=== PATIENT | male | born 1960 | race Two or more races ===

== ENCOUNTER 2020-02-19 18:34 | Inpatient (IN) | payer BC, OTHER ==
[~2020-02-19] VITALS: Ht 172.7 cm; Wt 132.0 kg
[2020-02-19 20:41] LABS: Basophils # (auto) 0 10 ^3/uL (0-0.2); Basophils % (auto) 0.1 % (0.0-2.0); Eosinophils # (auto) 0.2 10 ^3/uL (0-0.8); Eosinophils % (auto) 1.9 % (0.0-7.0); Hematocrit 37.4 % (41.0-53.0); Hemoglobin 12.5 g/dL (13.5-17.5); Lymphocytes # (auto) 0.6 10 ^3/uL (0.4-5.4); Lymphocytes % (auto) 6.5 % (10.0-50.0); Mean Corpuscular Hemoglobin 30.5 pg (28.0-32.0); Mean Corpuscular Hgb Conc. 33.5 g/dL (32.0-36.0); Mean Corpuscular Volume 90.8 fL (80.0-100.0); Monocytes # (auto) 0.5 10 ^3/uL (0-1.3); Monocytes % (auto) 5.8 % (0.0-12.0); Neutrophils # (auto) 7.5 10 ^3/uL (1.6-8.6); Neutrophils % (auto) 85.7 % (37.0-80.0); Platelet Count (auto) 216 10^3/uL (140-450); Red Blood Cells 4.11 10^6/uL (4.5-5.90); Red Cell Distribution Width 14.9 % (11.8-14.3); White Blood Cell 8.8 10^3/uL (4.4-10.8)
[2020-02-19 20:52] LABS: Albumin 2.9 g/dL (3.4-5.0); Anion Gap 10 (5-15); Blood Urea Nitrogen 51 mg/dL (7-18); Calcium 8.5 mg/dL (8.5-10.1); Carbon Dioxide 26 mmol/L (21-32); Chloride 96 mmol/L (98-107); GFR African American 37 mL/min; GFR Non-African American 31 mL/min; Glucose 120 mg/dL (74-106); Magnesium 2.9 mg/dL (1.6-2.6); Potassium 3.2 mmol/L (3.5-5.1); Sodium 132 mmol/L (136-145)
[2020-02-19 20:54] LABS: INR 0.99 (0.9-1.15); Partial Thromboplastin Time 26.4 sec (23.0-31.2)
[2020-02-19 20:57] LABS: Alanine Aminotransferase 15 U/L (16-61); Alkaline Phosphatase 115 U/L (45-117); Aspartate Aminotransferase 42 U/L (15-37); Bilirubin, Total 0.8 mg/dL (0.2-1.0); Total Protein 8.3 g/dL (6.4-8.2)
[2020-02-20] MEDS ORDERED: HYDROcodone-ACET 5/325MG TAB PO ONE (00:45)
[2020-02-20 00:57] LABS: Urine Bacteria FEW /hpf (None Seen); Urine Blood TRACE /uL (Negative); Urine Hyaline Cast MANY /lpf (0 - 2); Urine Specific Gravity 1.026 (1.001-1.035); Urine WBC 2 /hpf (0 - 3)
[2020-02-20] MEDS ORDERED: levoFLOXacin 750MG 150 ML IV ONE (02:00)
[2020-02-20] MEDS ORDERED: HYDR12.55 PO (02:11)
[2020-02-20] MEDS ORDERED: NALO1TAB2 PO (02:11)
[2020-02-20] MEDS ORDERED: OXYC325T14 PO (02:11)
[2020-02-20] MEDS ORDERED: LOSA-69 PO (02:11)
[2020-02-20] MEDS ORDERED: DULO1CAP4 PO (02:11)
[2020-02-20] MEDS ORDERED: GABA300C10 PO (02:11)
[2020-02-20] MEDS ORDERED: MORPHINE SULF INJ 2 MG/ML SYRINGE 1ML IV PRN (04:00)
[2020-02-20] MEDS ORDERED: ONDANSETRON HCL 4 MG/2 ML VIAL IV PRN (04:00)
[2020-02-20] MEDS ORDERED: NITROGLYCERIN 0.4 MG SL TAB SL PRN (04:00)
[2020-02-20] MEDS ORDERED: POTASSIUM CHL 20 Meq TABLET PO ONE (04:00)
[2020-02-20] MEDS ORDERED: ALBUTEROL SULF HFA 90MCG INH 200DOSE IN PRN (04:00)
[2020-02-20] MEDS: SODIUM CHLORIDE 0.9% 1,000 ML IV SCH ×2 (05:21→20:40)
[2020-02-20] MEDS: MORPHINE SULFATE 4 MG/ML SYR/VIAL IV PRN ×2 (06:30→23:53)
[2020-02-20] MEDS: BUDESONIDE (INHALATION) 180 MCG IH IN SCH ×2 (07:12→19:15)
[2020-02-20 09:45] LABS: Basophils # (auto) 0 10 ^3/uL (0-0.2); Basophils % (auto) 0.3 % (0.0-2.0); Eosinophils # (auto) 0.3 10 ^3/uL (0-0.8); Eosinophils % (auto) 4.1 % (0.0-7.0); Hematocrit 38.4 % (41.0-53.0); Hemoglobin 12.6 g/dL (13.5-17.5); Lymphocytes # (auto) 0.5 10 ^3/uL (0.4-5.4); Lymphocytes % (auto) 7.5 % (10.0-50.0); Mean Corpuscular Hemoglobin 30.1 pg (28.0-32.0); Mean Corpuscular Hgb Conc. 32.8 g/dL (32.0-36.0); Mean Corpuscular Volume 91.8 fL (80.0-100.0); Monocytes # (auto) 0.4 10 ^3/uL (0-1.3); Neutrophils % (auto) 83.1 % (37.0-80.0); Platelet Count (auto) 229 10^3/uL (140-450); Red Blood Cells 4.18 10^6/uL (4.5-5.90); Red Cell Distribution Width 15.1 % (11.8-14.3); White Blood Cell 7.2 10^3/uL (4.4-10.8)
[2020-02-20] MEDS: DexAMETHasone SOD PHOS 10MG/1ML VIAL INJ IV SCH (09:50)
[2020-02-20] MEDS: ZINC SULFATE 220mg CAP or TAB PO SCH (09:50)
[2020-02-20] MEDS: ASCORBIC ACID 1,000 MG TAB PO SCH (09:50)
[2020-02-20] MEDS: CHOLECALCIFEROL (VITD3) 2,000 UNIT CAP PO SCH (09:50)
[2020-02-20] MEDS: MULTIPLE VITAMIN TAB PO SCH (09:50)
[2020-02-20] MEDS: FAMOTIDINE (10MG/ML) 2ML VL IV SCH ×2 (09:50→23:52)
[2020-02-20] MEDS: DOXYCYCLINE 100MG/250ML 250 ML IV SCH ×2 (09:50→23:52)
[2020-02-20 10:07] LABS: Albumin 2.9 g/dL (3.4-5.0); Magnesium 3.5 mg/dL (1.6-2.6); Potassium 3.1 mmol/L (3.5-5.1)
[2020-02-20 10:10] LABS: Bilirubin, Total 0.8 mg/dL (0.2-1.0); Total Protein 8.8 g/dL (6.4-8.2)
[2020-02-20] MEDS ORDERED: POTASSIUM EFFERVESENT TAB 25 MEQ PO ONE (11:30)
[2020-02-20] MEDS ORDERED: SODIUM CHLORIDE 0.9% 1,000 ML IV ONE (11:30)
[2020-02-20] MEDS: HEPARIN SODIUM (PORCINE) 5000 UNITS/ML 1ML VIAL SC SCH ×2 (13:00→13:02)
[2020-02-20] MEDS ORDERED: IOHEXOL 350 MG/ML 100ML IJ ONE (13:51)
[2020-02-20] MEDS ORDERED: REMDESIVIR PER PHARMACY IV SCH (15:30)
[2020-02-20] MEDS ORDERED: ALBUTEROL SULF HFA 90MCG INH 200DOSE IN SCH (15:30)
[2020-02-20] MEDS ORDERED: REMDESIVIR 200 MG in NS 210ml LOADING DOSE ADULT IV ONE (17:00)
[2020-02-20 22:00] VITALS: BP 109/56
[2020-02-20] MEDS: DOCUSATE SOD 100 MG CAP PO PRN (23:54)
[2020-02-21] VITALS (7 sets, daily range): BP systolic 109–141; BP diastolic 56–80
[2020-02-21] MEDS ORDERED: METH2.5T PO (00:56)
[2020-02-21 07:43] LABS: Basophils # (auto) 0 10 ^3/uL (0-0.2); Basophils % (auto) 0.1 % (0.0-2.0); Eosinophils # (auto) 0 10 ^3/uL (0-0.8); Hematocrit 32.5 % (41.0-53.0); Hemoglobin 10.8 g/dL (13.5-17.5); Lymphocytes # (auto) 0.6 10 ^3/uL (0.4-5.4); Lymphocytes % (auto) 7.9 % (10.0-50.0); Mean Corpuscular Hemoglobin 30.1 pg (28.0-32.0); Mean Corpuscular Hgb Conc. 33.1 g/dL (32.0-36.0); Mean Corpuscular Volume 90.8 fL (80.0-100.0); Monocytes # (auto) 0.4 10 ^3/uL (0-1.3); Neutrophils # (auto) 6.2 10 ^3/uL (1.6-8.6); Platelet Count (auto) 262 10^3/uL (140-450); Red Blood Cells 3.58 10^6/uL (4.5-5.90); Red Cell Distribution Width 15.5 % (11.8-14.3); White Blood Cell 7.2 10^3/uL (4.4-10.8)
[2020-02-21 07:59] LABS: Albumin 2.4 g/dL (3.4-5.0); Anion Gap 8 (5-15); Blood Urea Nitrogen 23 mg/dL (7-18); Calcium 8.4 mg/dL (8.5-10.1); Carbon Dioxide 23 mmol/L (21-32); Chloride 106 mmol/L (98-107); Glucose 130 mg/dL (74-106); Potassium 3.5 mmol/L (3.5-5.1); Sodium 137 mmol/L (136-145)
[2020-02-21 08:03] LABS: Alanine Aminotransferase 13 U/L (16-61); Alkaline Phosphatase 146 U/L (45-117); Aspartate Aminotransferase 32 U/L (15-37); BUN/Creatinine Ratio 25.6; Bilirubin, Total 0.5 mg/dL (0.2-1.0); GFR African American 111 mL/min; GFR Non-African American 92 mL/min; Total Protein 7.8 g/dL (6.4-8.2)
[2020-02-21 08:52] LABS: CRP High Sensitivity > 19.0 mg/dL (< 0.3)
[2020-02-21] MEDS: HEPARIN SODIUM (PORCINE) 5000 UNITS/ML 1ML VIAL SC SCH ×2 (09:45→22:28)
[2020-02-21] MEDS: ASCORBIC ACID 1,000 MG TAB PO SCH (09:49)
[2020-02-21] MEDS: FAMOTIDINE (10MG/ML) 2ML VL IV SCH ×2 (09:49→22:26)
[2020-02-21] MEDS: DOXYCYCLINE 100MG/250ML 250 ML IV SCH ×2 (09:50→22:26)
[2020-02-21] MEDS: ZINC SULFATE 220mg CAP or TAB PO SCH (09:50)
[2020-02-21] MEDS: CHOLECALCIFEROL (VITD3) 2,000 UNIT CAP PO SCH (09:51)
[2020-02-21] MEDS: DexAMETHasone SOD PHOS 10MG/1ML VIAL INJ IV SCH (09:51)
[2020-02-21] MEDS: MULTIPLE VITAMIN TAB PO SCH (09:51)
[2020-02-21] MEDS: BUDESONIDE (INHALATION) 180 MCG IH IN SCH ×2 (10:00→22:00)
[2020-02-21] MEDS: MORPHINE SULFATE 4 MG/ML SYR/VIAL IV PRN ×2 (10:18→22:27)
[2020-02-21] MEDS: SODIUM CHLORIDE 0.9% 1,000 ML IV SCH (13:20)
[2020-02-21] MEDS: REMDESIVIR 100 MG in SODIUM CHL 0.9% 250 ML IV SCH (17:28)
[2020-02-21] MEDS: DOCUSATE SOD 100 MG CAP PO PRN (22:27)
[2020-02-22 05:00] VITALS: BP 116/74
[2020-02-22] MEDS: SODIUM CHLORIDE 0.9% 1,000 ML IV SCH ×2 (06:27→22:17)
[2020-02-22] MEDS: MORPHINE SULFATE 4 MG/ML SYR/VIAL IV PRN ×2 (06:32→22:16)
[2020-02-22 07:15] LABS: Basophils # (auto) 0 10 ^3/uL (0-0.2); Eosinophils # (auto) 0 10 ^3/uL (0-0.8); Eosinophils % (auto) 0.1 % (0.0-7.0); Hemoglobin 11.2 g/dL (13.5-17.5); Lymphocytes # (auto) 0.7 10 ^3/uL (0.4-5.4); Lymphocytes % (auto) 7.1 % (10.0-50.0); Mean Corpuscular Volume 91.2 fL (80.0-100.0); Monocytes # (auto) 0.6 10 ^3/uL (0-1.3); Monocytes % (auto) 5.8 % (0.0-12.0); Neutrophils # (auto) 9.1 10 ^3/uL (1.6-8.6); Nucleated Red Blood Cells % 0.1 %; Platelet Count (auto) 304 10^3/uL (140-450); Red Blood Cells 3.62 10^6/uL (4.5-5.90); Red Cell Distribution Width 15.4 % (11.8-14.3); White Blood Cell 10.4 10^3/uL (4.4-10.8)
[2020-02-22 07:28] LABS: Potassium 3.4 mmol/L (3.5-5.1)
[2020-02-22 07:47] LABS: BUN/Creatinine Ratio 31.9; CRP High Sensitivity 10.5 mg/dL (< 0.3); Calcium 8.2 mg/dL (8.5-10.1)
[2020-02-22] MEDS: BUDESONIDE (INHALATION) 180 MCG IH IN SCH ×2 (09:00→22:00)
[2020-02-22 09:12] VITALS: BP 126/74
[2020-02-22] MEDS: HEPARIN SODIUM (PORCINE) 5000 UNITS/ML 1ML VIAL SC SCH ×2 (09:50→22:17)
[2020-02-22] MEDS: ZINC SULFATE 220mg CAP or TAB PO SCH (09:56)
[2020-02-22] MEDS: FAMOTIDINE (10MG/ML) 2ML VL IV SCH ×2 (09:56→22:14)
[2020-02-22] MEDS: MULTIPLE VITAMIN TAB PO SCH (09:56)
[2020-02-22] MEDS: CHOLECALCIFEROL (VITD3) 2,000 UNIT CAP PO SCH (09:56)
[2020-02-22] MEDS: ASCORBIC ACID 1,000 MG TAB PO SCH (09:56)
[2020-02-22] MEDS: DexAMETHasone SOD PHOS 10MG/1ML VIAL INJ IV SCH (09:56)
[2020-02-22] MEDS: DOXYCYCLINE 100MG/250ML 250 ML IV SCH ×2 (09:56→22:14)
[2020-02-22] MEDS ORDERED: diphenhdrAMINE HCL 50 MG/1 ML VL IV PRN (11:30)
[2020-02-22 13:00] VITALS: BP 130/74
[2020-02-22] MEDS: REMDESIVIR 100 MG in SODIUM CHL 0.9% 250 ML IV SCH (16:40)
[2020-02-22 17:00] VITALS: BP 126/68
[2020-02-22 22:00] VITALS: BP 151/89
[2020-02-23 05:00] VITALS: BP 152/89
[2020-02-23 07:01] LABS: Basophils # (auto) 0 10 ^3/uL (0-0.2); Basophils % (auto) 0.1 % (0.0-2.0); Eosinophils # (auto) 0 10 ^3/uL (0-0.8); Eosinophils % (auto) 0.1 % (0.0-7.0); Hematocrit 37.3 % (41.0-53.0); Hemoglobin 12.1 g/dL (13.5-17.5); Lymphocytes # (auto) 0.7 10 ^3/uL (0.4-5.4); Lymphocytes % (auto) 6.1 % (10.0-50.0); Mean Corpuscular Hemoglobin 29.7 pg (28.0-32.0); Mean Corpuscular Hgb Conc. 32.5 g/dL (32.0-36.0); Mean Corpuscular Volume 91.4 fL (80.0-100.0); Monocytes # (auto) 0.6 10 ^3/uL (0-1.3); Monocytes % (auto) 5.3 % (0.0-12.0); Neutrophils # (auto) 10.3 10 ^3/uL (1.6-8.6); Neutrophils % (auto) 88.4 % (37.0-80.0); Nucleated Red Blood Cells % 0.1 %; Platelet Count (auto) 319 10^3/uL (140-450); Red Blood Cells 4.08 10^6/uL (4.5-5.90); Red Cell Distribution Width 15.4 % (11.8-14.3); White Blood Cell 11.6 10^3/uL (4.4-10.8)
[2020-02-23] MEDS: MORPHINE SULFATE 4 MG/ML SYR/VIAL IV PRN (07:02)
[2020-02-23 07:20] LABS: BUN/Creatinine Ratio 31.3; Calcium 8.6 mg/dL (8.5-10.1); Potassium 3.4 mmol/L (3.5-5.1)
[2020-02-23] MEDS: BUDESONIDE (INHALATION) 180 MCG IH IN SCH ×3 (07:32→22:13)
[2020-02-23 07:35] LABS: CRP High Sensitivity 7.04 mg/dL (< 0.3)
[2020-02-23 09:09] VITALS: BP 142/87
[2020-02-23] MEDS: HEPARIN SODIUM (PORCINE) 5000 UNITS/ML 1ML VIAL SC SCH ×2 (09:40→21:37)
[2020-02-23] MEDS: FAMOTIDINE (10MG/ML) 2ML VL IV SCH ×2 (09:42→21:35)
[2020-02-23] MEDS: ASCORBIC ACID 1,000 MG TAB PO SCH (09:42)
[2020-02-23] MEDS: MULTIPLE VITAMIN TAB PO SCH (09:42)
[2020-02-23] MEDS: ZINC SULFATE 220mg CAP or TAB PO SCH (09:42)
[2020-02-23] MEDS: DexAMETHasone SOD PHOS 10MG/1ML VIAL INJ IV SCH (09:43)
[2020-02-23] MEDS: CHOLECALCIFEROL (VITD3) 2,000 UNIT CAP PO SCH (09:43)
[2020-02-23] MEDS: DOXYCYCLINE 100MG/250ML 250 ML IV SCH ×2 (09:43→21:35)
[2020-02-23] MEDS ORDERED: POTASSIUM CHL 20 Meq TABLET PO ONE (10:45)
[2020-02-23 13:00] VITALS: BP 143/67
[2020-02-23] MEDS: SODIUM CHLORIDE 0.9% 1,000 ML IV SCH (14:01)
[2020-02-23 17:00] VITALS: BP 138/99
[2020-02-23] MEDS: REMDESIVIR 100 MG in SODIUM CHL 0.9% 250 ML IV SCH (17:32)
[2020-02-23 22:00] VITALS: BP 164/99
[2020-02-23] MEDS: ALBUTEROL SULF HFA 90MCG INH 200DOSE IN PRN (22:13)
[2020-02-24] VITALS (8 sets, daily range): BP systolic 121–159; BP diastolic 57–87
[2020-02-24] MEDS: MORPHINE SULFATE 4 MG/ML SYR/VIAL IV PRN ×3 (03:10→16:57)
[2020-02-24] MEDS: SODIUM CHLORIDE 0.9% 1,000 ML IV SCH (08:00)
[2020-02-24 08:34] LABS: Basophils # (auto) 0 10 ^3/uL (0-0.2); Basophils % (auto) 0.1 % (0.0-2.0); Eosinophils # (auto) 0.1 10 ^3/uL (0-0.8); Eosinophils % (auto) 0.6 % (0.0-7.0); Hematocrit 37.3 % (41.0-53.0); Hemoglobin 12.5 g/dL (13.5-17.5); Lymphocytes # (auto) 0.9 10 ^3/uL (0.4-5.4); Mean Corpuscular Hemoglobin 30.5 pg (28.0-32.0); Mean Corpuscular Hgb Conc. 33.5 g/dL (32.0-36.0); Mean Corpuscular Volume 91.1 fL (80.0-100.0); Monocytes # (auto) 0.4 10 ^3/uL (0-1.3); Monocytes % (auto) 3.3 % (0.0-12.0); Neutrophils # (auto) 9.5 10 ^3/uL (1.6-8.6); Nucleated Red Blood Cells % 0.1 %; Platelet Count (auto) 314 10^3/uL (140-450); Red Blood Cells 4.09 10^6/uL (4.5-5.90); Red Cell Distribution Width 15.8 % (11.8-14.3); White Blood Cell 10.8 10^3/uL (4.4-10.8)
[2020-02-24 08:47] LABS: Potassium 3.8 mmol/L (3.5-5.1)
[2020-02-24 09:05] LABS: Albumin 2.5 g/dL (3.4-5.0); BUN/Creatinine Ratio 31.4; CRP High Sensitivity 14.1 mg/dL (< 0.3); Calcium 8.3 mg/dL (8.5-10.1); Total Protein 7.7 g/dL (6.4-8.2)
[2020-02-24] MEDS ORDERED: DULOXETINE HCL PO SCH (10:00)
[2020-02-24] MEDS: BUDESONIDE (INHALATION) 180 MCG IH IN SCH ×2 (11:10→23:38)
[2020-02-24] MEDS: ALBUTEROL SULF HFA 90MCG INH 200DOSE IN PRN ×2 (11:11→23:38)
[2020-02-24] MEDS: DexAMETHasone SOD PHOS 10MG/1ML VIAL INJ IV SCH (11:34)
[2020-02-24] MEDS: FAMOTIDINE (10MG/ML) 2ML VL IV SCH ×2 (11:34→22:23)
[2020-02-24] MEDS: DOXYCYCLINE 100MG/250ML 250 ML IV SCH ×2 (11:35→22:23)
[2020-02-24] MEDS: LOSARTAN POTASSIUM 50 MG TAB PO SCH (11:37)
[2020-02-24] MEDS: MULTIPLE VITAMIN TAB PO SCH (11:37)
[2020-02-24] MEDS: ZINC SULFATE 220mg CAP or TAB PO SCH (11:37)
[2020-02-24] MEDS: CHOLECALCIFEROL (VITD3) 2,000 UNIT CAP PO SCH (11:46)
[2020-02-24] MEDS: ASCORBIC ACID 1,000 MG TAB PO SCH (11:46)
[2020-02-24] MEDS: HEPARIN SODIUM (PORCINE) 5000 UNITS/ML 1ML VIAL SC SCH ×2 (11:47→22:10)
[2020-02-24] MEDS: REMDESIVIR 100 MG in SODIUM CHL 0.9% 250 ML IV SCH (16:56)
[2020-02-24] MEDS ORDERED: LORazepam 2MG/ML-1ML VIAL IV PRN (17:15)
[2020-02-25] MEDS: SODIUM CHLORIDE 0.9% 1,000 ML IV SCH (00:40)
[2020-02-25 08:03] LABS: Basophils # (auto) 0 10 ^3/uL (0-0.2); Basophils % (auto) 0.1 % (0.0-2.0); Calcium 8.5 mg/dL (8.5-10.1); Eosinophils # (auto) 0 10 ^3/uL (0-0.8); Eosinophils % (auto) 0.1 % (0.0-7.0); Hematocrit 37.1 % (41.0-53.0); Lymphocytes # (auto) 0.6 10 ^3/uL (0.4-5.4); Lymphocytes % (auto) 5.1 % (10.0-50.0); Mean Corpuscular Hemoglobin 30.1 pg (28.0-32.0); Mean Corpuscular Hgb Conc. 32.5 g/dL (32.0-36.0); Mean Corpuscular Volume 92.6 fL (80.0-100.0); Monocytes # (auto) 0.4 10 ^3/uL (0-1.3); Monocytes % (auto) 3.4 % (0.0-12.0); Neutrophils # (auto) 10.3 10 ^3/uL (1.6-8.6); Neutrophils % (auto) 91.3 % (37.0-80.0); Nucleated Red Blood Cells % 0.1 %; Platelet Count (auto) 288 10^3/uL (140-450); Potassium 4.3 mmol/L (3.5-5.1); Red Cell Distribution Width 15.7 % (11.8-14.3); White Blood Cell 11.3 10^3/uL (4.4-10.8)
[2020-02-25 08:11] LABS: BUN/Creatinine Ratio 32.2; CRP High Sensitivity 17.6 mg/dL (< 0.3)
[2020-02-25] MEDS: BUDESONIDE (INHALATION) 180 MCG IH IN SCH ×2 (10:00→21:38)
[2020-02-25] MEDS: DULOXETINE HCL PO SCH (10:00)
[2020-02-25] MEDS: DexAMETHasone SOD PHOS 10MG/1ML VIAL INJ IV SCH (10:00)
[2020-02-25] MEDS: LOSARTAN POTASSIUM 50 MG TAB PO SCH (10:00)
[2020-02-25] MEDS: FAMOTIDINE (10MG/ML) 2ML VL IV SCH ×2 (12:29→21:39)
[2020-02-25] MEDS: HEPARIN SODIUM (PORCINE) 5000 UNITS/ML 1ML VIAL SC SCH ×2 (12:33→21:40)
[2020-02-25] MEDS: MULTIPLE VITAMIN TAB PO SCH (12:35)
[2020-02-25] MEDS: ASCORBIC ACID 1,000 MG TAB PO SCH (12:36)
[2020-02-25] MEDS: ZINC SULFATE 220mg CAP or TAB PO SCH (12:36)
[2020-02-25] MEDS: MORPHINE SULFATE 4 MG/ML SYR/VIAL IV PRN (12:38)
[2020-02-25] MEDS: CHOLECALCIFEROL (VITD3) 2,000 UNIT CAP PO SCH (16:55)
[2020-02-25] MEDS: ALBUTEROL SULF HFA 90MCG INH 200DOSE IN PRN (21:38)
[2020-02-25 22:00] VITALS: BP 151/80
[2020-02-26 05:00] VITALS: BP 141/83
[2020-02-26 08:33] LABS: Basophils # (auto) 0 10 ^3/uL (0-0.2); Basophils % (auto) 0.2 % (0.0-2.0); Eosinophils # (auto) 0 10 ^3/uL (0-0.8); Hematocrit 37.7 % (41.0-53.0); Lymphocytes # (auto) 0.6 10 ^3/uL (0.4-5.4); Mean Corpuscular Hemoglobin 29.8 pg (28.0-32.0); Mean Corpuscular Hgb Conc. 31.8 g/dL (32.0-36.0); Mean Corpuscular Volume 93.8 fL (80.0-100.0); Monocytes # (auto) 0.6 10 ^3/uL (0-1.3); Monocytes % (auto) 4.3 % (0.0-12.0); Neutrophils % (auto) 91.5 % (37.0-80.0); Nucleated Red Blood Cells % 0.1 %; Platelet Count (auto) 308 10^3/uL (140-450); Red Blood Cells 4.02 10^6/uL (4.5-5.90); Red Cell Distribution Width 16.3 % (11.8-14.3); White Blood Cell 14.2 10^3/uL (4.4-10.8)
[2020-02-26 09:00] VITALS: BP 135/79
[2020-02-26 09:02] LABS: Calcium 8.6 mg/dL (8.5-10.1); Potassium 4.1 mmol/L (3.5-5.1)
[2020-02-26 09:13] LABS: BUN/Creatinine Ratio 35.4; CRP High Sensitivity 16.2 mg/dL (< 0.3)
[2020-02-26] MEDS: BUDESONIDE (INHALATION) 180 MCG IH IN SCH ×2 (10:00→22:00)
[2020-02-26] MEDS: DULOXETINE HCL PO SCH (10:00)
[2020-02-26] MEDS: CHOLECALCIFEROL (VITD3) 2,000 UNIT CAP PO SCH (10:56)
[2020-02-26] MEDS: LOSARTAN POTASSIUM 50 MG TAB PO SCH (10:56)
[2020-02-26] MEDS: FAMOTIDINE (10MG/ML) 2ML VL IV SCH ×2 (10:57→21:18)
[2020-02-26] MEDS: ASCORBIC ACID 1,000 MG TAB PO SCH (10:57)
[2020-02-26] MEDS: ZINC SULFATE 220mg CAP or TAB PO SCH (10:57)
[2020-02-26] MEDS: MULTIPLE VITAMIN TAB PO SCH (10:57)
[2020-02-26] MEDS: DexAMETHasone SOD PHOS 10MG/1ML VIAL INJ IV SCH (10:58)
[2020-02-26 13:00] VITALS: BP 140/88
[2020-02-26] MEDS: HEPARIN SODIUM (PORCINE) 5000 UNITS/ML 1ML VIAL SC SCH ×2 (14:17→21:21)
[2020-02-26 17:00] VITALS: BP 144/72
[2020-02-26] MEDS: ACETAMINOPHEN 500 MG TAB PO PRN (21:19)
[2020-02-26 21:39] VITALS: BP 119/66
[2020-02-27] MEDS: HEPARIN SODIUM (PORCINE) 5000 UNITS/ML 1ML VIAL SC SCH ×3 (05:55→22:17)
[2020-02-27] MEDS: MORPHINE SULFATE 4 MG/ML SYR/VIAL IV PRN (06:18)
[2020-02-27 07:00] VITALS: BP_SYST 119; BP_SYST 134; BP_DIAS 66; BP_DIAS 89
[2020-02-27 08:00] VITALS: BP 125/63
[2020-02-27 08:03] LABS: Basophils # (auto) 0 10 ^3/uL (0-0.2); Basophils % (auto) 0.1 % (0.0-2.0); Eosinophils # (auto) 0 10 ^3/uL (0-0.8); Hemoglobin 12.7 g/dL (13.5-17.5); Lymphocytes # (auto) 0.6 10 ^3/uL (0.4-5.4); Lymphocytes % (auto) 3.3 % (10.0-50.0); Mean Corpuscular Hemoglobin 29.9 pg (28.0-32.0); Mean Corpuscular Hgb Conc. 31.8 g/dL (32.0-36.0); Monocytes # (auto) 0.9 10 ^3/uL (0-1.3); Monocytes % (auto) 5.4 % (0.0-12.0); Neutrophils # (auto) 15.9 10 ^3/uL (1.6-8.6); Neutrophils % (auto) 91.2 % (37.0-80.0); Platelet Count (auto) 346 10^3/uL (140-450); Red Blood Cells 4.25 10^6/uL (4.5-5.90); Red Cell Distribution Width 16.5 % (11.8-14.3); White Blood Cell 17.5 10^3/uL (4.4-10.8)
[2020-02-27 08:12] LABS: Calcium 8.6 mg/dL (8.5-10.1); Potassium 4.4 mmol/L (3.5-5.1)
[2020-02-27 08:22] LABS: BUN/Creatinine Ratio 35.7; CRP High Sensitivity 9.87 mg/dL (< 0.3)
[2020-02-27] MEDS: BUDESONIDE (INHALATION) 180 MCG IH IN SCH (10:00)
[2020-02-27] MEDS: DULOXETINE HCL PO SCH (10:02)
[2020-02-27] MEDS: FAMOTIDINE (10MG/ML) 2ML VL IV SCH ×2 (10:02→22:16)
[2020-02-27] MEDS: DexAMETHasone SOD PHOS 10MG/1ML VIAL INJ IV SCH (10:02)
[2020-02-27] MEDS: MULTIPLE VITAMIN TAB PO SCH (10:03)
[2020-02-27] MEDS: ASCORBIC ACID 1,000 MG TAB PO SCH (10:03)
[2020-02-27] MEDS: ZINC SULFATE 220mg CAP or TAB PO SCH (10:03)
[2020-02-27] MEDS: CHOLECALCIFEROL (VITD3) 2,000 UNIT CAP PO SCH (10:04)
[2020-02-27] MEDS: LOSARTAN POTASSIUM 50 MG TAB PO SCH (10:53)
[2020-02-27] MEDS: ALBUTEROL SULF HFA 90MCG INH 200DOSE IN PRN ×2 (11:43→11:55)
[2020-02-27 12:07] VITALS: BP 122/74
[2020-02-27 17:00] VITALS: BP 131/87
[2020-02-27] MEDS: ACETAMINOPHEN 500 MG TAB PO PRN (18:06)
[2020-02-27 20:00] VITALS: BP 134/90
[2020-02-27] MEDS: OXYCODONE W/ ACETAMINOPHEN 5/325MG TABLET PO PRN (20:44)
[2020-02-27 22:00] VITALS: BP 134/90
[2020-02-28] VITALS (7 sets, daily range): BP systolic 104–148; BP diastolic 54–86
[2020-02-28] MEDS: OXYCODONE W/ ACETAMINOPHEN 5/325MG TABLET PO PRN ×2 (03:48→20:37)
[2020-02-28] MEDS: HEPARIN SODIUM (PORCINE) 5000 UNITS/ML 1ML VIAL SC SCH ×3 (05:51→21:34)
[2020-02-28] MEDS: DULOXETINE HCL PO SCH (10:00)
[2020-02-28] MEDS: ALBUTEROL SULF HFA 90MCG INH 200DOSE IN PRN ×2 (10:05→21:04)
[2020-02-28] MEDS: BUDESONIDE (INHALATION) 180 MCG IH IN SCH ×2 (10:06→21:01)
[2020-02-28] MEDS: DexAMETHasone SOD PHOS 10MG/1ML VIAL INJ IV SCH (10:26)
[2020-02-28] MEDS: ZINC SULFATE 220mg CAP or TAB PO SCH (10:27)
[2020-02-28] MEDS: LOSARTAN POTASSIUM 50 MG TAB PO SCH (10:29)
[2020-02-28] MEDS: MULTIPLE VITAMIN TAB PO SCH (10:30)
[2020-02-28] MEDS: ASCORBIC ACID 1,000 MG TAB PO SCH (10:30)
[2020-02-28] MEDS: CHOLECALCIFEROL (VITD3) 2,000 UNIT CAP PO SCH (10:31)
[2020-02-28] MEDS: FAMOTIDINE (10MG/ML) 2ML VL IV SCH ×2 (10:31→21:32)
[2020-02-29] VITALS (60 sets, daily range): BP systolic 80–146; BP diastolic 44–75
[2020-02-29] MEDS: HEPARIN SODIUM (PORCINE) 5000 UNITS/ML 1ML VIAL SC SCH (05:45)
[2020-02-29] MEDS: ALBUTEROL SULF HFA 90MCG INH 200DOSE IN PRN (07:04)
[2020-02-29] MEDS: BUDESONIDE (INHALATION) 180 MCG IH IN SCH (07:04)
[2020-02-29] MEDS: OXYCODONE W/ ACETAMINOPHEN 5/325MG TABLET PO PRN (07:40)
[2020-02-29] MEDS ORDERED: SUCCINYLCHOLINE CHLORIDE 20 MG/ML 10ML VIAL IV ONE (07:56)
[2020-02-29] MEDS ORDERED: ETOMIDATE (2MG/ML) 20ML VIAL IV ONE (07:56)
[2020-02-29] MEDS ORDERED: ROCURONIUM 10MG/ML 10ML VIAL IV ONE ×2 (07:56→14:30)
[2020-02-29] MEDS ORDERED: MIDAZOLAM DRIP 50 mg/50mL 50 ML IV ONE (08:11)
[2020-02-29] MEDS ORDERED: PROPOFOL 100 ML IV ONE ×2 (08:12→08:18)
[2020-02-29] MEDS: MIDAZOLAM DRIP 50 mg/50mL 50 ML IV SCH ×4 (08:20→22:15)
[2020-02-29] MEDS: PROPOFOL 100 ML IV SCH ×5 (08:20→23:56)
[2020-02-29] MEDS ORDERED: NOREPINEPHRINE 8 MG/250ML KIT 250 ML IV ONE (08:49)
[2020-02-29] MEDS: NOREPINEPHRINE 8 MG/250ML KIT 250 ML IV SCH (08:50)
[2020-02-29] MEDS: fentaNYL Drip 2500mCg/250mlNS 250 ML IV SCH (09:45)
[2020-02-29] MEDS: ZINC SULFATE 220mg CAP or TAB PO SCH (11:00)
[2020-02-29] MEDS: MULTIPLE VITAMIN TAB PO SCH (11:00)
[2020-02-29] MEDS: CHOLECALCIFEROL (VITD3) 2,000 UNIT CAP PO SCH (11:00)
[2020-02-29] MEDS: ASCORBIC ACID 1,000 MG TAB PO SCH (11:00)
[2020-02-29] MEDS: LOSARTAN POTASSIUM 50 MG TAB PO SCH (11:00)
[2020-02-29] MEDS: DULOXETINE HCL PO SCH (11:00)
[2020-02-29] MEDS: DexAMETHasone SOD PHOS 10MG/1ML VIAL INJ IV SCH (11:00)
[2020-02-29] MEDS: FAMOTIDINE (10MG/ML) 2ML VL IV SCH ×2 (11:00→20:48)
[2020-02-29] MEDS ORDERED: HEPARIN SODIUM (PORCINE) 5000 UNITS/ML 1ML VIAL ONE (14:05)
[2020-02-29] MEDS: ATRACURIUM BESYLATE 1,000 MG in D5W 5% 150 ML IV SCH (16:29)
[2020-02-29 16:46] LABS: Basophils # (auto) 0 10 ^3/uL (0-0.2); Basophils % (auto) 0.1 % (0.0-2.0); Eosinophils # (auto) 0.1 10 ^3/uL (0-0.8); Eosinophils % (auto) 0.4 % (0.0-7.0); Hematocrit 37.6 % (41.0-53.0); Hemoglobin 12.3 g/dL (13.5-17.5); Lymphocytes # (auto) 0.4 10 ^3/uL (0.4-5.4); Lymphocytes % (auto) 2.4 % (10.0-50.0); Mean Corpuscular Hemoglobin 30.5 pg (28.0-32.0); Mean Corpuscular Hgb Conc. 32.6 g/dL (32.0-36.0); Mean Corpuscular Volume 93.7 fL (80.0-100.0); Monocytes # (auto) 0.3 10 ^3/uL (0-1.3); Monocytes % (auto) 2.1 % (0.0-12.0); Neutrophils # (auto) 14.9 10 ^3/uL (1.6-8.6); Platelet Count (auto) 300 10^3/uL (140-450); Red Blood Cells 4.01 10^6/uL (4.5-5.90); Red Cell Distribution Width 16.1 % (11.8-14.3); White Blood Cell 15.7 10^3/uL (4.4-10.8)
[2020-02-29 17:11] LABS: Calcium 8.1 mg/dL (8.5-10.1); Magnesium 2.9 mg/dL (1.6-2.6); Potassium 5.4 mmol/L (3.5-5.1)
[2020-02-29 17:20] LABS: BUN/Creatinine Ratio 26.3; CRP High Sensitivity 9.3 mg/dL (< 0.3)
[2020-02-29] MEDS: BUDESONIDE (INHALATION) 0.5 MG/2 ML NEB NEB SCH (19:30)
[2020-02-29] MEDS: ALBUTEROL SULF 2.5 MG/0.5ML(0.5%) NEB SOLN NEB SCH (19:30)
[2020-03-01] VITALS (98 sets, daily range): BP systolic 83–158; BP diastolic 37–87
[2020-03-01] MEDS: PROPOFOL 100 ML IV SCH ×6 (03:08→21:42)
[2020-03-01] MEDS: MIDAZOLAM DRIP 50 mg/50mL 50 ML IV SCH ×3 (03:26→21:41)
[2020-03-01] MEDS: fentaNYL Drip 2500mCg/250mlNS 250 ML IV SCH (03:48)
[2020-03-01] MEDS: ALBUTEROL SULF 2.5 MG/0.5ML(0.5%) NEB SOLN NEB SCH ×3 (06:00→19:07)
[2020-03-01] MEDS: NOREPINEPHRINE 8 MG/250ML KIT 250 ML IV SCH ×2 (08:58→15:55)
[2020-03-01] MEDS: BUDESONIDE (INHALATION) 0.5 MG/2 ML NEB NEB SCH ×2 (10:00→19:07)
[2020-03-01] MEDS: LOSARTAN POTASSIUM 50 MG TAB PO SCH (10:00)
[2020-03-01] MEDS: DexAMETHasone SOD PHOS 10MG/1ML VIAL INJ IV SCH (10:06)
[2020-03-01] MEDS: FAMOTIDINE (10MG/ML) 2ML VL IV SCH ×2 (10:07→21:40)
[2020-03-01] MEDS: DULOXETINE HCL PO SCH (10:07)
[2020-03-01] MEDS: ZINC SULFATE 220mg CAP or TAB PO SCH (10:08)
[2020-03-01] MEDS: ASCORBIC ACID 1,000 MG TAB PO SCH (10:09)
[2020-03-01] MEDS: MULTIPLE VITAMIN TAB PO SCH (10:09)
[2020-03-01] MEDS: CHOLECALCIFEROL (VITD3) 2,000 UNIT CAP PO SCH (10:10)
[2020-03-01] MEDS: ENOXAPARIN SOD 40 MG/0.4 ML SYRINGE SC SCH (10:12)
[2020-03-01 10:37] LABS: Hematocrit 40.6 % (41.0-53.0); Hemoglobin 12.7 g/dL (13.5-17.5); Mean Corpuscular Hemoglobin 30.4 pg (28.0-32.0); Mean Corpuscular Hgb Conc. 31.2 g/dL (32.0-36.0); Mean Corpuscular Volume 97.3 fL (80.0-100.0); Platelet Count (auto) 307 10^3/uL (140-450); Red Blood Cells 4.17 10^6/uL (4.5-5.90); Red Cell Distribution Width 16.1 % (11.8-14.3); White Blood Cell 21.6 10^3/uL (4.4-10.8)
[2020-03-01 10:41] LABS: Basophils % (manual) 0 (0.0-2.0); Blast Cells 0; Eosinophils % (manual) 0 (0-7); Metamyelocytes % 0; Myelocytes % 0; Promyelocytes % 0; Reactive Lymphocytes 0
[2020-03-01 10:54] LABS: INR 0.99 (0.9-1.15); Partial Thromboplastin Time 23.6 sec (23.0-31.2)
[2020-03-01 11:22] LABS: Band Neutrophils % (manual) 2; Lymphocytes % (manual) 5 (10.0-50.0); Monocytes % (manual) 1 (0-12)
[2020-03-01] MEDS ORDERED: FUROSEMIDE 20 MG/2 ML VIAL ONE (12:49)
[2020-03-01 13:58] LABS: Anion Gap 10 (5-15); Carbon Dioxide 19 mmol/L (21-32); Chloride 106 mmol/L (98-107); Sodium 135 mmol/L (136-145)
[2020-03-01 13:59] LABS: BUN/Creatinine Ratio 12.6; Blood Urea Nitrogen 48 mg/dL (7-18); CRP High Sensitivity 12.2 mg/dL (< 0.3); Calcium 7.4 mg/dL (8.5-10.1); GFR African American 21 mL/min; GFR Non-African American 17 mL/min; Glucose 231 mg/dL (74-106); Magnesium 3.2 mg/dL (1.6-2.6)
[2020-03-01 14:00] LABS: Potassium 6.8 mmol/L (3.5-5.1)
[2020-03-01] MEDS ORDERED: SODIUM ZIRCONIUM CYCL 10 GM PAK ONE (14:28)
[2020-03-01] MEDS ORDERED: BUMETANIDE INJECTION 10 ML ONE (14:28)
[2020-03-01] MEDS: ATRACURIUM BESYLATE 1,000 MG in D5W 5% 150 ML IV SCH (14:30)
[2020-03-01] MEDS ORDERED: CALCIUM GLUC 4.65meq/50ml D5AE 50 ML IV ONE (15:00)
[2020-03-01] MEDS ORDERED: BUMETANIDE 2.5mg/10ml (0.25 mg/ml) INJ IV ONE (15:00)
[2020-03-01] MEDS ORDERED: ALBUTEROL SULF 2.5 MG/0.5ML(0.5%) NEB SOLN NEB ONE (15:00)
[2020-03-01] MEDS ORDERED: CALCIUM CHLOR(10%) 100MG/ML 10ML SYRINGE IV ONE (15:02)
[2020-03-01] MEDS: SODIUM ZIRCONIUM CYCL 10 GM PAK PO SCH ×2 (15:20→22:00)
[2020-03-01] MEDS: SODIUM BICARBONATE 50ML VIAL 150 ML in D5W 5% 1,000 ML IV SCH ×2 (15:55→22:40)
[2020-03-01] MEDS ORDERED: SODIUM BICARBONATE 8.4 % INJ 50ML VIAL IV ONE (16:00)
[2020-03-01] MEDS: SODIUM CHLOR 0.9% PF (SALINE LOCK) 10ML VIAL/SYR IV SCH (21:40)
[2020-03-02] VITALS (97 sets, daily range): BP systolic 73–201; BP diastolic 32–98
[2020-03-02] MEDS: PROPOFOL 100 ML IV SCH ×5 (01:45→21:24)
[2020-03-02 04:43] LABS: Basophils # (auto) 0 10 ^3/uL (0-0.2); Eosinophils # (auto) 0 10 ^3/uL (0-0.8); Eosinophils % (auto) 0.1 % (0.0-7.0); Hematocrit 32.3 % (41.0-53.0); Hemoglobin 10.7 g/dL (13.5-17.5); Lymphocytes # (auto) 0.5 10 ^3/uL (0.4-5.4); Mean Corpuscular Hemoglobin 30.3 pg (28.0-32.0); Mean Corpuscular Volume 91.8 fL (80.0-100.0); Monocytes # (auto) 0.6 10 ^3/uL (0-1.3); Monocytes % (auto) 4.7 % (0.0-12.0); Neutrophils # (auto) 11.9 10 ^3/uL (1.6-8.6); Neutrophils % (auto) 91.2 % (37.0-80.0); Nucleated Red Blood Cells % 0.2 %; Platelet Count (auto) 187 10^3/uL (140-450); Red Blood Cells 3.52 10^6/uL (4.5-5.90)
[2020-03-02 05:17] LABS: Potassium 4.2 mmol/L (3.5-5.1)
[2020-03-02 05:55] LABS: BUN/Creatinine Ratio 12.7; Bilirubin, Total 0.6 mg/dL (0.2-1.0); CRP High Sensitivity 8.03 mg/dL (< 0.3); Calcium 6.7 mg/dL (8.5-10.1); Magnesium 2.8 mg/dL (1.6-2.6); Total Protein 6.2 g/dL (6.4-8.2)
[2020-03-02] MEDS: ALBUTEROL SULF 2.5 MG/0.5ML(0.5%) NEB SOLN NEB SCH ×2 (06:00→22:00)
[2020-03-02] MEDS: SODIUM ZIRCONIUM CYCL 10 GM PAK PO SCH ×3 (06:28→21:25)
[2020-03-02] MEDS: SODIUM BICARBONATE 50ML VIAL 150 ML in D5W 5% 1,000 ML IV SCH ×4 (06:30→15:30)
[2020-03-02] MEDS: NOREPINEPHRINE 8 MG/250ML KIT 250 ML IV SCH (06:47)
[2020-03-02] MEDS: fentaNYL Drip 2500mCg/250mlNS 250 ML IV SCH (07:20)
[2020-03-02] MEDS: MIDAZOLAM DRIP 50 mg/50mL 50 ML IV SCH ×3 (07:22→18:03)
[2020-03-02 08:55] LABS: Albumin 1.7 g/dL (3.4-5.0); Anion Gap 13 (5-15); Blood Urea Nitrogen 54 mg/dL (7-18); Carbon Dioxide 24 mmol/L (21-32); Chloride 94 mmol/L (98-107); Glucose 295 mg/dL (74-106); Magnesium 2.6 mg/dL (1.6-2.6); Potassium 3.5 mmol/L (3.5-5.1); Sodium 131 mmol/L (136-145)
[2020-03-02 09:00] LABS: Basophils # (auto) 0 10 ^3/uL (0-0.2); Basophils % (auto) 0.1 % (0.0-2.0); Eosinophils # (auto) 0 10 ^3/uL (0-0.8); Eosinophils % (auto) 0.2 % (0.0-7.0); Hemoglobin 10.1 g/dL (13.5-17.5); Lymphocytes # (auto) 0.7 10 ^3/uL (0.4-5.4); Lymphocytes % (auto) 4.9 % (10.0-50.0); Mean Corpuscular Hemoglobin 32.2 pg (28.0-32.0); Monocytes # (auto) 0.6 10 ^3/uL (0-1.3); Monocytes % (auto) 4.2 % (0.0-12.0); Neutrophils # (auto) 12.4 10 ^3/uL (1.6-8.6); Neutrophils % (auto) 90.6 % (37.0-80.0); Nucleated Red Blood Cells % 0.2 %; Platelet Count (auto) 169 10^3/uL (140-450); Red Blood Cells 3.15 10^6/uL (4.5-5.90); Red Cell Distribution Width 16.1 % (11.8-14.3); White Blood Cell 13.7 10^3/uL (4.4-10.8)
[2020-03-02 09:42] LABS: Alanine Aminotransferase 28 U/L (16-61); Alkaline Phosphatase 91 U/L (45-117); Aspartate Aminotransferase 32 U/L (15-37); Bilirubin, Total 0.6 mg/dL (0.2-1.0); CRP High Sensitivity > 19 mg/dL (< 0.3); GFR African American 17 mL/min; GFR Non-African American 14 mL/min; Total Protein 5.7 g/dL (6.4-8.2)
[2020-03-02 09:44] LABS: Calcium 5.8 mg/dL (8.5-10.1)
[2020-03-02] MEDS: BUDESONIDE (INHALATION) 0.5 MG/2 ML NEB NEB SCH ×2 (10:00→22:00)
[2020-03-02] MEDS: DexAMETHasone SOD PHOS 10MG/1ML VIAL INJ IV SCH (10:22)
[2020-03-02] MEDS: FAMOTIDINE (10MG/ML) 2ML VL IV SCH ×2 (10:23→21:24)
[2020-03-02] MEDS: SODIUM CHLOR 0.9% PF (SALINE LOCK) 10ML VIAL/SYR IV SCH ×2 (10:23→21:25)
[2020-03-02] MEDS: DULOXETINE HCL PO SCH (10:23)
[2020-03-02] MEDS: CHOLECALCIFEROL (VITD3) 2,000 UNIT CAP PO SCH (10:24)
[2020-03-02] MEDS: MULTIPLE VITAMIN TAB PO SCH (10:24)
[2020-03-02] MEDS: ZINC SULFATE 220mg CAP or TAB PO SCH (10:24)
[2020-03-02] MEDS: ASCORBIC ACID 1,000 MG TAB PO SCH (10:24)
[2020-03-02] MEDS: ENOXAPARIN SOD 40 MG/0.4 ML SYRINGE SC SCH (10:24)
[2020-03-02] MEDS ORDERED: SODIUM CHL 0.9% 1000 ML BAG XX ONE (13:30)
[2020-03-02] MEDS ORDERED: HEPARIN 1,000 UNITS/ml 1ML VIAL IV ONE ×2 (14:00)
[2020-03-02] MEDS ORDERED: Nepro With Carb Steady 1 Liter Bottle GT SCH (14:15)
[2020-03-02] MEDS: ATRACURIUM BESYLATE 1,000 MG in D5W 5% 150 ML IV SCH (14:30)
[2020-03-02] MEDS ORDERED: BUMETANIDE 2.5mg/10ml (0.25 mg/ml) INJ IV ONE (15:30)
[2020-03-02] MEDS: METOCLOPRAMIDE HCL 5MG/ml INJ 2ml VIAL IV SCH (21:25)
[2020-03-03] VITALS (84 sets, daily range): BP systolic 84–240; BP diastolic 45–106
[2020-03-03] MEDS: PROPOFOL 100 ML IV SCH ×7 (00:33→19:34)
[2020-03-03 03:29] LABS: Basophils # (auto) 0.1 10 ^3/uL (0-0.2); Basophils % (auto) 0.6 % (0.0-2.0); Eosinophils # (auto) 0 10 ^3/uL (0-0.8); Eosinophils % (auto) 0.1 % (0.0-7.0); Hematocrit 28.5 % (41.0-53.0); Hemoglobin 9.7 g/dL (13.5-17.5); Lymphocytes # (auto) 0.6 10 ^3/uL (0.4-5.4); Lymphocytes % (auto) 4.9 % (10.0-50.0); Mean Corpuscular Hemoglobin 30.4 pg (28.0-32.0); Mean Corpuscular Hgb Conc. 33.8 g/dL (32.0-36.0); Mean Corpuscular Volume 89.9 fL (80.0-100.0); Monocytes # (auto) 0.7 10 ^3/uL (0-1.3); Monocytes % (auto) 5.4 % (0.0-12.0); Neutrophils # (auto) 10.8 10 ^3/uL (1.6-8.6); Nucleated Red Blood Cells % 0.2 %; Platelet Count (auto) 178 10^3/uL (140-450); Red Blood Cells 3.17 10^6/uL (4.5-5.90); White Blood Cell 12.2 10^3/uL (4.4-10.8)
[2020-03-03 03:54] LABS: Chloride 90 mmol/L (98-107); Potassium 3.5 mmol/L (3.5-5.1); Sodium 130 mmol/L (136-145)
[2020-03-03 04:05] LABS: Anion Gap 13 (5-15); BUN/Creatinine Ratio 12.1; Blood Urea Nitrogen 69 mg/dL (7-18); CRP High Sensitivity 8.29 mg/dL (< 0.3); Carbon Dioxide 27 mmol/L (21-32); GFR African American 13 mL/min; GFR Non-African American 11 mL/min; Glucose 231 mg/dL (74-106)
[2020-03-03] MEDS ORDERED: ALBUMIN 25% 100 ML IV ONE (06:15)
[2020-03-03] MEDS: SODIUM BICARBONATE 50ML VIAL 150 ML in D5W 5% 1,000 ML IV SCH (06:46)
[2020-03-03] MEDS: fentaNYL Drip 2500mCg/250mlNS 250 ML IV SCH (07:06)
[2020-03-03] MEDS: NOREPINEPHRINE 8 MG/250ML KIT 250 ML IV SCH (09:45)
[2020-03-03] MEDS: DexAMETHasone SOD PHOS 10MG/1ML VIAL INJ IV SCH (10:48)
[2020-03-03] MEDS: METOCLOPRAMIDE HCL 5MG/ml INJ 2ml VIAL IV SCH ×2 (10:49→20:15)
[2020-03-03] MEDS: DULOXETINE HCL PO SCH (10:49)
[2020-03-03] MEDS: SODIUM CHLOR 0.9% PF (SALINE LOCK) 10ML VIAL/SYR IV SCH ×2 (10:49→20:16)
[2020-03-03] MEDS: ENOXAPARIN SOD 40 MG/0.4 ML SYRINGE SC SCH (10:50)
[2020-03-03] MEDS: CHOLECALCIFEROL (VITD3) 2,000 UNIT CAP PO SCH (10:50)
[2020-03-03] MEDS: ASCORBIC ACID 1,000 MG TAB PO SCH (10:51)
[2020-03-03] MEDS: MULTIPLE VITAMIN TAB PO SCH (10:52)
[2020-03-03] MEDS: FAMOTIDINE (10MG/ML) 2ML VL IV SCH ×2 (10:52→20:15)
[2020-03-03] MEDS: ZINC SULFATE 220mg CAP or TAB PO SCH (10:52)
[2020-03-03] MEDS: MIDAZOLAM DRIP 50 mg/50mL 50 ML IV SCH ×2 (11:57→15:51)
[2020-03-03] MEDS ORDERED: CALCIUM CHL 100MG/ML 1,000 MG in D5W 5% 100 ML IV ONE (13:00)
[2020-03-03] MEDS: ATRACURIUM BESYLATE 1,000 MG in D5W 5% 150 ML IV SCH (14:30)
[2020-03-03] MEDS: BUDESONIDE (INHALATION) 0.5 MG/2 ML NEB NEB SCH (18:45)
[2020-03-03] MEDS: ALBUTEROL SULF 2.5 MG/0.5ML(0.5%) NEB SOLN NEB SCH (18:45)
[2020-03-03] MEDS: CALCIUM CARB 500 MG CHEW TAB NG SCH (20:16)
[2020-03-04] VITALS (75 sets, daily range): BP systolic 76–194; BP diastolic 37–87
[2020-03-04] MEDS: MIDAZOLAM DRIP 50 mg/50mL 50 ML IV SCH ×6 (01:17→22:38)
[2020-03-04] MEDS: fentaNYL Drip 2500mCg/250mlNS 250 ML IV SCH ×2 (04:55→22:38)
[2020-03-04] MEDS: BUDESONIDE (INHALATION) 0.5 MG/2 ML NEB NEB SCH ×2 (06:10→19:26)
[2020-03-04] MEDS: PROPOFOL 100 ML IV SCH ×4 (07:01→19:35)
[2020-03-04] MEDS: MULTIPLE VITAMIN TAB PO SCH (09:07)
[2020-03-04] MEDS: ASCORBIC ACID 1,000 MG TAB PO SCH (09:07)
[2020-03-04] MEDS: DOCUSATE SOD 100 MG CAP PO PRN (09:07)
[2020-03-04] MEDS: CALCIUM CARB 500 MG CHEW TAB NG SCH ×2 (09:08→20:15)
[2020-03-04] MEDS: DULOXETINE HCL PO SCH (09:08)
[2020-03-04] MEDS: ZINC SULFATE 220mg CAP or TAB PO SCH (09:08)
[2020-03-04] MEDS: DexAMETHasone SOD PHOS 10MG/1ML VIAL INJ IV SCH (09:09)
[2020-03-04] MEDS: ENOXAPARIN SOD 40 MG/0.4 ML SYRINGE SC SCH (09:10)
[2020-03-04] MEDS: FAMOTIDINE (10MG/ML) 2ML VL IV SCH ×2 (09:10→20:14)
[2020-03-04] MEDS: SODIUM CHLOR 0.9% PF (SALINE LOCK) 10ML VIAL/SYR IV SCH ×2 (09:11→20:15)
[2020-03-04] MEDS: METOCLOPRAMIDE HCL 5MG/ml INJ 2ml VIAL IV SCH ×2 (09:13→20:15)
[2020-03-04] MEDS: CHOLECALCIFEROL (VITD3) 2,000 UNIT CAP PO SCH (09:14)
[2020-03-04] MEDS: NOREPINEPHRINE 8 MG/250ML KIT 250 ML IV SCH (09:45)
[2020-03-04 10:32] LABS: Hepatitis A Ab IgM Negative; Hepatitis B Core IgM Negative
[2020-03-04 10:33] LABS: Hepatitis B Surface Antigen Negative (Negative); Hepatitis C Antibody Negative (Negative)
[2020-03-04] MEDS: ALBUTEROL SULF 2.5 MG/0.5ML(0.5%) NEB SOLN NEB SCH ×2 (14:00→19:26)
[2020-03-04] MEDS ORDERED: TPN PER PHARMACY 0 ML IV SCH (14:30)
[2020-03-04] MEDS: ATRACURIUM BESYLATE 1,000 MG in D5W 5% 150 ML IV SCH (14:30)
[2020-03-04 19:22] LABS: Calcium 6.4 mg/dL (8.5-10.1); Magnesium 2.5 mg/dL (1.6-2.6); Potassium 4.8 mmol/L (3.5-5.1)
[2020-03-04 19:27] LABS: BUN/Creatinine Ratio 13.6; Bilirubin, Total 0.6 mg/dL (0.2-1.0); Pre Albumin 24.3 mg/dL (20.0-40.0); Total Protein 6.1 g/dL (6.4-8.2)
[2020-03-04 19:52] LABS: Phosphorus 9.6 mg/dL (2.5-4.90)
[2020-03-04] MEDS: AMINO ACID INFUSION IN D10W 1,000 ML IV NR (20:14)
[2020-03-04] MEDS ORDERED: CALCIUM GLUC 4.65meq/50ml D5AE 50 ML IV ONE (21:15)
[2020-03-04] MEDS ORDERED: DOCUSATE ORAL LIQUID 100 MG/10 ML UD GT PRN (22:00)
[2020-03-05] VITALS (90 sets, daily range): BP systolic 89–199; BP diastolic 37–85
[2020-03-05] MEDS ORDERED: DEXTROSE (50%) 50ML SYRG IV SCH
[2020-03-05] MEDS: MIDAZOLAM DRIP 50 mg/50mL 50 ML IV SCH ×2 (01:26→22:07)
[2020-03-05] MEDS: PROPOFOL 100 ML IV SCH ×3 (01:26→21:53)
[2020-03-05 03:24] LABS: Hematocrit 26.8 % (41.0-53.0); Hemoglobin 8.9 g/dL (13.5-17.5); Mean Corpuscular Hemoglobin 29.9 pg (28.0-32.0); Mean Corpuscular Hgb Conc. 33.1 g/dL (32.0-36.0); Mean Corpuscular Volume 90.4 fL (80.0-100.0); Platelet Count (auto) 166 10^3/uL (140-450); Red Blood Cells 2.97 10^6/uL (4.5-5.90); White Blood Cell 12.9 10^3/uL (4.4-10.8)
[2020-03-05 03:28] LABS: Albumin 1.8 g/dL (3.4-5.0); Calcium 6.2 mg/dL (8.5-10.1); Magnesium 2.7 mg/dL (1.6-2.6); Potassium 4.9 mmol/L (3.5-5.1)
[2020-03-05 03:30] LABS: Basophils % (manual) 0 (0.0-2.0); Blast Cells 0; Eosinophils % (manual) 0 (0-7); Metamyelocytes % 0; Myelocytes % 0; Promyelocytes % 0; Reactive Lymphocytes 0
[2020-03-05 03:33] LABS: BUN/Creatinine Ratio 14.6; Bilirubin, Total 0.4 mg/dL (0.2-1.0)
[2020-03-05 04:14] LABS: Band Neutrophils % (manual) 4; Lymphocytes % (manual) 5 (10.0-50.0); Monocytes % (manual) 3 (0-12)
[2020-03-05] MEDS: InsuLIN REG 1unit/0.01ml Soln (100units/ml) SC SCH ×4 (05:43→17:37)
[2020-03-05] MEDS: ACCU-CHEK COMFORT CURVE STRIP VI SCH ×4 (05:44→17:33)
[2020-03-05] MEDS: ALBUTEROL SULF 2.5 MG/0.5ML(0.5%) NEB SOLN NEB SCH ×3 (06:00→22:47)
[2020-03-05] MEDS: BUDESONIDE (INHALATION) 0.5 MG/2 ML NEB NEB SCH ×2 (07:14→22:47)
[2020-03-05] MEDS: NOREPINEPHRINE 8 MG/250ML KIT 250 ML IV SCH (09:45)
[2020-03-05] MEDS: DexAMETHasone SOD PHOS 10MG/1ML VIAL INJ IV SCH (10:00)
[2020-03-05] MEDS: CALCIUM CARB 500 MG CHEW TAB NG SCH ×2 (10:00→22:31)
[2020-03-05] MEDS: CHOLECALCIFEROL (VITD3) 2,000 UNIT CAP PO SCH (10:00)
[2020-03-05] MEDS: ENOXAPARIN SOD 40 MG/0.4 ML SYRINGE SC SCH (10:00)
[2020-03-05] MEDS: DULOXETINE HCL PO SCH (10:00)
[2020-03-05] MEDS: ASCORBIC ACID 1,000 MG TAB PO SCH (10:00)
[2020-03-05] MEDS: FAMOTIDINE (10MG/ML) 2ML VL IV SCH ×2 (10:00→22:19)
[2020-03-05] MEDS: MULTIPLE VITAMIN TAB PO SCH (10:00)
[2020-03-05] MEDS: ZINC SULFATE 220mg CAP or TAB PO SCH (10:00)
[2020-03-05] MEDS: METOCLOPRAMIDE HCL 5MG/ml INJ 2ml VIAL IV SCH (10:00)
[2020-03-05] MEDS: SODIUM CHLOR 0.9% PF (SALINE LOCK) 10ML VIAL/SYR IV SCH ×2 (10:00→22:20)
[2020-03-05] MEDS ORDERED: CALCIUM GLUC 4.65meq/50ml D5AE 50 ML IV ONE (13:00)
[2020-03-05] MEDS: ATRACURIUM BESYLATE 1,000 MG in D5W 5% 150 ML IV SCH (14:30)
[2020-03-05] MEDS: CALCIUM ACETATE 667 MG CAP GT SCH (17:33)
[2020-03-05] MEDS: AMINO ACID INFUSION IN D10W 1,000 ML IV NR (19:49)
[2020-03-05] MEDS ORDERED: TPN PER PHARMACY IV NR ×8 (20:00)
[2020-03-06] VITALS (94 sets, daily range): BP systolic 81–143; BP diastolic 38–73
[2020-03-06] MEDS: ACCU-CHEK COMFORT CURVE STRIP VI SCH ×4 (00:01→17:02)
[2020-03-06] MEDS: InsuLIN REG 1unit/0.01ml Soln (100units/ml) SC SCH ×4 (00:45→17:02)
[2020-03-06] MEDS: MIDAZOLAM DRIP 50 mg/50mL 50 ML IV SCH ×2 (00:48→20:19)
[2020-03-06 05:27] LABS: Basophils # (auto) 0 10 ^3/uL (0-0.2); Basophils % (auto) 0.1 % (0.0-2.0); Eosinophils # (auto) 0 10 ^3/uL (0-0.8); Hematocrit 25.3 % (41.0-53.0); Lymphocytes # (auto) 0.3 10 ^3/uL (0.4-5.4); Monocytes # (auto) 0.6 10 ^3/uL (0-1.3); Neutrophils # (auto) 9.8 10 ^3/uL (1.6-8.6); Nucleated Red Blood Cells % 0.1 %; White Blood Cell 10.7 10^3/uL (4.4-10.8)
[2020-03-06 05:32] LABS: Eosinophils % (auto) 0.1 % (0.0-7.0); Hemoglobin 8.5 g/dL (13.5-17.5); Lymphocytes % (auto) 3.2 % (10.0-50.0); Mean Corpuscular Hemoglobin 31.2 pg (28.0-32.0); Mean Corpuscular Hgb Conc. 33.6 g/dL (32.0-36.0); Mean Corpuscular Volume 92.7 fL (80.0-100.0); Monocytes % (auto) 5.4 % (0.0-12.0); Neutrophils % (auto) 91.2 % (37.0-80.0); Platelet Count (auto) 167 10^3/uL (140-450); Red Blood Cells 2.73 10^6/uL (4.5-5.90); Red Cell Distribution Width 16.5 % (11.8-14.3)
[2020-03-06 05:41] LABS: Albumin 1.9 g/dL (3.4-5.0); Calcium 6.7 mg/dL (8.5-10.1); Magnesium 2.6 mg/dL (1.6-2.6); Potassium 4.7 mmol/L (3.5-5.1)
[2020-03-06 05:45] LABS: BUN/Creatinine Ratio 15.7; Bilirubin, Total 0.4 mg/dL (0.2-1.0)
[2020-03-06 06:20] LABS: Phosphorus 8.8 mg/dL (2.5-4.90)
[2020-03-06] MEDS: BUDESONIDE (INHALATION) 0.5 MG/2 ML NEB NEB SCH ×2 (06:20→22:08)
[2020-03-06] MEDS: ALBUTEROL SULF 2.5 MG/0.5ML(0.5%) NEB SOLN NEB SCH ×3 (06:20→22:08)
[2020-03-06] MEDS: CALCIUM ACETATE 667 MG CAP GT SCH ×3 (08:00→17:03)
[2020-03-06] MEDS: fentaNYL Drip 2500mCg/250mlNS 250 ML IV SCH (09:42)
[2020-03-06] MEDS: NOREPINEPHRINE 8 MG/250ML KIT 250 ML IV SCH (09:45)
[2020-03-06] MEDS: DULOXETINE HCL PO SCH (10:23)
[2020-03-06] MEDS: BUMETANIDE 2.5mg/10ml (0.25 mg/ml) INJ IV SCH (10:23)
[2020-03-06] MEDS: SODIUM CHLOR 0.9% PF (SALINE LOCK) 10ML VIAL/SYR IV SCH ×2 (10:23→21:44)
[2020-03-06] MEDS: CALCIUM CARB 500 MG CHEW TAB NG SCH ×2 (10:23→21:45)
[2020-03-06] MEDS: FAMOTIDINE (10MG/ML) 2ML VL IV SCH ×2 (10:23→21:44)
[2020-03-06] MEDS: MULTIPLE VITAMIN TAB PO SCH (10:23)
[2020-03-06] MEDS: ENOXAPARIN SOD 40 MG/0.4 ML SYRINGE SC SCH (10:24)
[2020-03-06] MEDS: ATRACURIUM BESYLATE 1,000 MG in D5W 5% 150 ML IV SCH (14:30)
[2020-03-06] MEDS ORDERED: PHYTONADIONE (VIT K)10 MG/ML 1ML VIAL SUBCUT ONE (15:30)
[2020-03-06] MEDS ORDERED: IRON SUCROSE COMPLEX 200 MG in SODIUM CHL 0.9% 100 ML IV SCH (15:30)
[2020-03-06] MEDS ORDERED: TPN PER PHARMACY IV NR ×6 (20:00)
[2020-03-07] VITALS (51 sets, daily range): BP systolic 83–134; BP diastolic 43–67
[2020-03-07] MEDS: ACCU-CHEK COMFORT CURVE STRIP VI SCH ×5 (00:22→23:57)
[2020-03-07] MEDS: MIDAZOLAM DRIP 50 mg/50mL 50 ML IV SCH ×3 (00:52→21:21)
[2020-03-07] MEDS: PROPOFOL 100 ML IV SCH ×2 (03:15→22:28)
[2020-03-07] MEDS: NOREPINEPHRINE 8 MG/250ML KIT 250 ML IV SCH ×2 (03:19→21:16)
[2020-03-07] MEDS: InsuLIN REG 1unit/0.01ml Soln (100units/ml) SC SCH ×5 (06:00→23:57)
[2020-03-07] MEDS: BUDESONIDE (INHALATION) 0.5 MG/2 ML NEB NEB SCH ×2 (07:27→18:30)
[2020-03-07] MEDS: ALBUTEROL SULF 2.5 MG/0.5ML(0.5%) NEB SOLN NEB SCH ×3 (07:27→18:30)
[2020-03-07 08:26] LABS: Hematocrit 27.2 % (41.0-53.0); Hemoglobin 8.9 g/dL (13.5-17.5); Mean Corpuscular Hemoglobin 29.9 pg (28.0-32.0); Mean Corpuscular Hgb Conc. 32.8 g/dL (32.0-36.0); Mean Corpuscular Volume 91.1 fL (80.0-100.0); Platelet Count (auto) 212 10^3/uL (140-450); Red Blood Cells 2.99 10^6/uL (4.5-5.90); Red Cell Distribution Width 16.9 % (11.8-14.3); White Blood Cell 11.2 10^3/uL (4.4-10.8)
[2020-03-07 08:33] LABS: Basophils % (manual) 0 (0.0-2.0); Blast Cells 0; Promyelocytes % 0; Reactive Lymphocytes 0
[2020-03-07] MEDS: CALCIUM ACETATE 667 MG CAP GT SCH ×3 (08:40→18:00)
[2020-03-07] MEDS: SODIUM CHLOR 0.9% PF (SALINE LOCK) 10ML VIAL/SYR IV SCH ×2 (08:45→22:23)
[2020-03-07] MEDS: CALCIUM CARB 500 MG CHEW TAB NG SCH ×2 (08:45→22:00)
[2020-03-07] MEDS: MULTIPLE VITAMIN TAB PO SCH (08:46)
[2020-03-07] MEDS: DULOXETINE HCL PO SCH (08:46)
[2020-03-07] MEDS: ENOXAPARIN SOD 40 MG/0.4 ML SYRINGE SC SCH (08:46)
[2020-03-07 08:50] LABS: Potassium 3.8 mmol/L (3.5-5.1)
[2020-03-07 09:01] LABS: Albumin 1.6 g/dL (3.4-5.0); BUN/Creatinine Ratio 15.6; Bilirubin, Total 0.6 mg/dL (0.2-1.0); Calcium 6.6 mg/dL (8.5-10.1); Magnesium 2.6 mg/dL (1.6-2.6); Phosphorus 8.7 mg/dL (2.5-4.90); Total Protein 5.9 g/dL (6.4-8.2)
[2020-03-07] MEDS: fentaNYL Drip 2500mCg/250mlNS 250 ML IV SCH (09:45)
[2020-03-07] MEDS ORDERED: SODIUM BICARBONATE 8.4 % INJ 50ML VIAL IV ONE (13:45)
[2020-03-07 14:24] LABS: Band Neutrophils % (manual) 4; Eosinophils % (manual) 2 (0-7); Lymphocytes % (manual) 8 (10.0-50.0); Metamyelocytes % 2; Monocytes % (manual) 3 (0-12); Myelocytes % 3
[2020-03-07] MEDS: ATRACURIUM BESYLATE 1,000 MG in D5W 5% 150 ML IV SCH (14:30)
[2020-03-07] MEDS: BUMETANIDE 2.5mg/10ml (0.25 mg/ml) INJ IV SCH (15:30)
[2020-03-07] MEDS: FAMOTIDINE (10MG/ML) 2ML VL IV SCH ×2 (15:30→22:23)
[2020-03-07] MEDS: SODIUM FERR GLUC 62.5MG/5ML 125 MG in SODIUM CHL 0.9% 100 ML IV SCH ×2 (16:26→16:30)
[2020-03-07] MEDS ORDERED: TPN PER PHARMACY IV NR ×8 (20:00)
[2020-03-08] VITALS (97 sets, daily range): BP systolic 81–137; BP diastolic 40–75
[2020-03-08] MEDS: PROPOFOL 100 ML IV SCH ×5 (02:08→22:56)
[2020-03-08] MEDS: MIDAZOLAM DRIP 50 mg/50mL 50 ML IV SCH ×2 (02:10→17:00)
[2020-03-08 04:46] LABS: Hematocrit 33.5 % (41.0-53.0); Hemoglobin 10.7 g/dL (13.5-17.5); Mean Corpuscular Hemoglobin 30.2 pg (28.0-32.0); Mean Corpuscular Hgb Conc. 32.1 g/dL (32.0-36.0); Mean Corpuscular Volume 94.2 fL (80.0-100.0); Platelet Count (auto) 263 10^3/uL (140-450); Red Blood Cells 3.55 10^6/uL (4.5-5.90); Red Cell Distribution Width 17.1 % (11.8-14.3); White Blood Cell 16.1 10^3/uL (4.4-10.8)
[2020-03-08 05:01] LABS: Basophils % (manual) 0 (0.0-2.0); Blast Cells 0; INR 1.01 (0.9-1.15); Partial Thromboplastin Time 30.9 sec (23.0-31.2); Promyelocytes % 0; Reactive Lymphocytes 0
[2020-03-08 05:07] LABS: Albumin 1.6 g/dL (3.4-5.0); Calcium 7.2 mg/dL (8.5-10.1); Magnesium 2.6 mg/dL (1.6-2.6); Potassium 4.3 mmol/L (3.5-5.1)
[2020-03-08 05:12] LABS: BUN/Creatinine Ratio 15.7; Bilirubin, Total 0.8 mg/dL (0.2-1.0); Total Protein 6.4 g/dL (6.4-8.2)
[2020-03-08 05:42] LABS: Phosphorus 8.5 mg/dL (2.5-4.90)
[2020-03-08] MEDS: ALBUTEROL SULF 2.5 MG/0.5ML(0.5%) NEB SOLN NEB SCH ×3 (06:00→20:47)
[2020-03-08] MEDS: InsuLIN REG 1unit/0.01ml Soln (100units/ml) SC SCH ×3 (06:00→17:27)
[2020-03-08] MEDS ORDERED: SODIUM CHL 0.9% 1000 ML BAG XX ONE (06:30)
[2020-03-08 06:44] LABS: Band Neutrophils % (manual) 11; Eosinophils % (manual) 6 (0-7); Lymphocytes % (manual) 13 (10.0-50.0); Monocytes % (manual) 2 (0-12)
[2020-03-08 06:45] LABS: Metamyelocytes % 2; Myelocytes % 2
[2020-03-08] MEDS: METOCLOPRAMIDE HCL 5MG/ml INJ 2ml VIAL IV SCH ×3 (06:58→20:04)
[2020-03-08] MEDS: ACCU-CHEK COMFORT CURVE STRIP VI SCH ×4 (07:00→23:52)
[2020-03-08] MEDS: CALCIUM ACETATE 667 MG CAP GT SCH ×3 (08:00→18:00)
[2020-03-08] MEDS: fentaNYL Drip 2500mCg/250mlNS 250 ML IV SCH (09:45)
[2020-03-08] MEDS: BUDESONIDE (INHALATION) 0.5 MG/2 ML NEB NEB SCH ×2 (10:00→20:47)
[2020-03-08] MEDS: DULOXETINE HCL PO SCH (10:00)
[2020-03-08] MEDS: SODIUM CHLOR 0.9% PF (SALINE LOCK) 10ML VIAL/SYR IV SCH ×2 (10:00→20:04)
[2020-03-08] MEDS: MULTIPLE VITAMIN TAB PO SCH (10:00)
[2020-03-08] MEDS: CALCIUM CARB 500 MG CHEW TAB NG SCH ×2 (10:00→20:04)
[2020-03-08] MEDS: SODIUM FERR GLUC 62.5MG/5ML 125 MG in SODIUM CHL 0.9% 100 ML IV SCH (10:47)
[2020-03-08] MEDS: FAMOTIDINE (10MG/ML) 2ML VL IV SCH ×2 (10:48→20:04)
[2020-03-08] MEDS: ENOXAPARIN SOD 40 MG/0.4 ML SYRINGE SC SCH (10:49)
[2020-03-08] MEDS: BUMETANIDE 2.5mg/10ml (0.25 mg/ml) INJ IV SCH (10:50)
[2020-03-08] MEDS: ACETAMINOPHEN 500 MG TAB PO PRN (13:51)
[2020-03-08] MEDS: ATRACURIUM BESYLATE 1,000 MG in D5W 5% 150 ML IV SCH (14:30)
[2020-03-08] MEDS: NOREPINEPHRINE 8 MG/250ML KIT 250 ML IV SCH ×2 (15:45→21:09)
[2020-03-08] MEDS ORDERED: TPN*HIGH CONC* PER PHARMACY IV NR ×8 (20:00)
[2020-03-09] VITALS (100 sets, daily range): BP systolic 77–131; BP diastolic 34–73
[2020-03-09] MEDS: InsuLIN REG 1unit/0.01ml Soln (100units/ml) SC SCH ×4 (00:26→18:00)
[2020-03-09] MEDS: fentaNYL Drip 2500mCg/250mlNS 250 ML IV SCH (01:33)
[2020-03-09] MEDS: NOREPINEPHRINE BITARTRATE 16 MG in SODIUM CHL 0.9% 250 ML IV SCH ×2 (02:33→18:35)
[2020-03-09] MEDS: MIDAZOLAM DRIP 50 mg/50mL 50 ML IV SCH ×2 (03:23→19:28)
[2020-03-09 04:13] LABS: Albumin 1.4 g/dL (3.4-5.0); BUN/Creatinine Ratio 12.6; Bilirubin, Total 0.7 mg/dL (0.2-1.0); Calcium 7.3 mg/dL (8.5-10.1); Phosphorus 5.7 mg/dL (2.5-4.90)
[2020-03-09 04:25] LABS: Hematocrit 29.2 % (41.0-53.0); Hemoglobin 9.6 g/dL (13.5-17.5); Mean Corpuscular Hemoglobin 30.2 pg (28.0-32.0); Mean Corpuscular Hgb Conc. 32.7 g/dL (32.0-36.0); Mean Corpuscular Volume 92.3 fL (80.0-100.0); Platelet Count (auto) 198 10^3/uL (140-450); Red Blood Cells 3.16 10^6/uL (4.5-5.90); Red Cell Distribution Width 16.8 % (11.8-14.3); White Blood Cell 17.3 10^3/uL (4.4-10.8)
[2020-03-09 04:34] LABS: Basophils % (manual) 0 (0.0-2.0); Blast Cells 0; Promyelocytes % 0; Reactive Lymphocytes 0
[2020-03-09] MEDS: ACCU-CHEK COMFORT CURVE STRIP VI SCH ×3 (05:48→18:00)
[2020-03-09] MEDS: METOCLOPRAMIDE HCL 5MG/ml INJ 2ml VIAL IV SCH ×3 (05:50→20:09)
[2020-03-09] MEDS: ALBUTEROL SULF 2.5 MG/0.5ML(0.5%) NEB SOLN NEB SCH ×3 (06:10→22:00)
[2020-03-09] MEDS: BUDESONIDE (INHALATION) 0.5 MG/2 ML NEB NEB SCH ×2 (06:10→22:00)
[2020-03-09 06:51] LABS: Band Neutrophils % (manual) 13; Eosinophils % (manual) 7 (0-7); Lymphocytes % (manual) 4 (10.0-50.0); Metamyelocytes % 2; Monocytes % (manual) 5 (0-12); Myelocytes % 2
[2020-03-09] MEDS ORDERED: PHENYLEPHRINE IV 250 ML IV ONE (07:29)
[2020-03-09] MEDS: CALCIUM ACETATE 667 MG CAP GT SCH ×3 (08:00→17:16)
[2020-03-09] MEDS: PHENYLEPHRINE INJ 40 MG in SODIUM CHL 0.9% 250 ML IV SCH ×3 (08:00→22:30)
[2020-03-09] MEDS: SODIUM CHLOR 0.9% PF (SALINE LOCK) 10ML VIAL/SYR IV SCH ×2 (10:00→20:04)
[2020-03-09] MEDS: SODIUM FERR GLUC 62.5MG/5ML 125 MG in SODIUM CHL 0.9% 100 ML IV SCH (11:00)
[2020-03-09] MEDS: DULOXETINE HCL PO SCH (11:02)
[2020-03-09] MEDS: CALCIUM CARB 500 MG CHEW TAB NG SCH ×2 (11:02→20:04)
[2020-03-09] MEDS: FAMOTIDINE (10MG/ML) 2ML VL IV SCH ×2 (11:02→20:03)
[2020-03-09] MEDS: ENOXAPARIN SOD 40 MG/0.4 ML SYRINGE SC SCH (11:03)
[2020-03-09] MEDS: MULTIPLE VITAMIN TAB PO SCH (11:03)
[2020-03-09] MEDS: ATRACURIUM BESYLATE 1,000 MG in D5W 5% 150 ML IV SCH (14:30)
[2020-03-09] MEDS: PROPOFOL 100 ML IV SCH (19:27)
[2020-03-09] MEDS ORDERED: TPN*HIGH CONC* PER PHARMACY IV NR ×7 (20:00)
[2020-03-09] MEDS: VASOPRESSIN 50 UNITS in D5W 5% 247.5 ML IV SCH (21:45)
[2020-03-10] VITALS (96 sets, daily range): BP systolic 82–140; BP diastolic 22–65
[2020-03-10] MEDS: ACCU-CHEK COMFORT CURVE STRIP VI SCH ×2 (00:17→06:00)
[2020-03-10] MEDS: fentaNYL Drip 2500mCg/250mlNS 250 ML IV SCH ×2 (01:15→13:23)
[2020-03-10] MEDS: PROPOFOL 100 ML IV SCH ×7 (02:03→20:09)
[2020-03-10] MEDS: MIDAZOLAM DRIP 50 mg/50mL 50 ML IV SCH ×5 (02:03→20:09)
[2020-03-10] MEDS: NOREPINEPHRINE BITARTRATE 16 MG in SODIUM CHL 0.9% 250 ML IV SCH ×3 (03:00→20:08)
[2020-03-10] MEDS ORDERED: PHENYLEPHRINE IV 250 ML IV ONE (05:54)
[2020-03-10] MEDS ORDERED: PHENYLEPHRINE HCL 10 MG/ML VL ONE (05:58)
[2020-03-10] MEDS: METOCLOPRAMIDE HCL 5MG/ml INJ 2ml VIAL IV SCH ×3 (06:00→22:00)
[2020-03-10] MEDS: InsuLIN REG 1unit/0.01ml Soln (100units/ml) SC SCH ×2 (06:00)
[2020-03-10] MEDS: PHENYLEPHRINE INJ 40 MG in SODIUM CHL 0.9% 250 ML IV SCH ×2 (06:02→12:00)
[2020-03-10] MEDS: BUDESONIDE (INHALATION) 0.5 MG/2 ML NEB NEB SCH ×2 (06:46→20:07)
[2020-03-10] MEDS: ALBUTEROL SULF 2.5 MG/0.5ML(0.5%) NEB SOLN NEB SCH ×3 (06:46→20:07)
[2020-03-10] MEDS: CALCIUM ACETATE 667 MG CAP GT SCH ×3 (08:00→18:00)
[2020-03-10 08:59] LABS: Hematocrit 29.6 % (41.0-53.0); Hemoglobin 9.6 g/dL (13.5-17.5); Mean Corpuscular Hemoglobin 30.2 pg (28.0-32.0); Mean Corpuscular Hgb Conc. 32.6 g/dL (32.0-36.0); Mean Corpuscular Volume 92.7 fL (80.0-100.0); Platelet Count (auto) 250 10^3/uL (140-450); Red Blood Cells 3.19 10^6/uL (4.5-5.90); Red Cell Distribution Width 17.2 % (11.8-14.3); White Blood Cell 16.5 10^3/uL (4.4-10.8)
[2020-03-10 09:06] LABS: Basophils % (manual) 0 (0.0-2.0); Blast Cells 0; Promyelocytes % 0; Reactive Lymphocytes 0
[2020-03-10 09:16] LABS: Albumin 1.3 g/dL (3.4-5.0); Calcium 7.4 mg/dL (8.5-10.1); Magnesium 1.9 mg/dL (1.6-2.6); Potassium 5.2 mmol/L (3.5-5.1)
[2020-03-10 09:21] LABS: BUN/Creatinine Ratio 12.2; Bilirubin, Total 0.6 mg/dL (0.2-1.0); Phosphorus 7.6 mg/dL (2.5-4.90); Pre Albumin 19.5 mg/dL (20.0-40.0); Total Protein 6.2 g/dL (6.4-8.2)
[2020-03-10] MEDS: CALCIUM CARB 500 MG CHEW TAB NG SCH ×2 (10:00→22:00)
[2020-03-10] MEDS: MULTIPLE VITAMIN TAB PO SCH (10:00)
[2020-03-10] MEDS: DULOXETINE HCL PO SCH (10:00)
[2020-03-10] MEDS: ENOXAPARIN SOD 40 MG/0.4 ML SYRINGE SC SCH (10:16)
[2020-03-10] MEDS: FAMOTIDINE (10MG/ML) 2ML VL IV SCH ×2 (10:16→22:00)
[2020-03-10] MEDS: SODIUM CHLOR 0.9% PF (SALINE LOCK) 10ML VIAL/SYR IV SCH ×2 (10:16→22:28)
[2020-03-10 10:38] LABS: Band Neutrophils % (manual) 17; Eosinophils % (manual) 6 (0-7); Lymphocytes % (manual) 6 (10.0-50.0); Metamyelocytes % 2; Monocytes % (manual) 2 (0-12); Myelocytes % 2
[2020-03-10] MEDS: ATRACURIUM BESYLATE 1,000 MG in D5W 5% 150 ML IV SCH (11:59)
[2020-03-10] MEDS ORDERED: TPN*HIGH CONC* PER PHARMACY IV NR ×9 (20:00)
[2020-03-10] MEDS ORDERED: SODIUM ZIRCONIUM CYCL 10 GM PAK PO ONE (22:30)
[2020-03-10] MEDS ORDERED: BUMETANIDE 2.5mg/10ml (0.25 mg/ml) INJ IV ONE (22:30)
[2020-03-10] MEDS ORDERED: SODIUM BICARBONATE 8.4% INJ 50ML SYRINGE IV ONE (22:30)
[2020-03-11] VITALS (71 sets, daily range): BP systolic 64–178; BP diastolic 19–76
[2020-03-11] MEDS: MIDAZOLAM DRIP 50 mg/50mL 50 ML IV SCH ×5 (00:05→21:33)
[2020-03-11] MEDS: fentaNYL Drip 2500mCg/250mlNS 250 ML IV SCH ×2 (02:14→15:04)
[2020-03-11] MEDS: PROPOFOL 100 ML IV SCH ×4 (02:15→14:07)
[2020-03-11 03:52] LABS: Hemoglobin 8.1 g/dL (13.5-17.5)
[2020-03-11 03:54] LABS: Hematocrit 24.6 % (41.0-53.0); Mean Corpuscular Hemoglobin 30.7 pg (28.0-32.0); Mean Corpuscular Hgb Conc. 32.8 g/dL (32.0-36.0); Mean Corpuscular Volume 93.6 fL (80.0-100.0); Platelet Count (auto) 241 10^3/uL (140-450); Red Blood Cells 2.62 10^6/uL (4.5-5.90); Red Cell Distribution Width 17.1 % (11.8-14.3); White Blood Cell 12.7 10^3/uL (4.4-10.8)
[2020-03-11 04:11] LABS: Albumin 1.3 g/dL (3.4-5.0); Calcium 7.1 mg/dL (8.5-10.1)
[2020-03-11 04:14] LABS: BUN/Creatinine Ratio 12.2; Bilirubin, Total 0.7 mg/dL (0.2-1.0); Potassium 5.7 mmol/L (3.5-5.1); Total Protein 5.9 g/dL (6.4-8.2)
[2020-03-11 04:26] LABS: Basophils % (manual) 0 (0.0-2.0); Blast Cells 0; Promyelocytes % 0; Reactive Lymphocytes 0
[2020-03-11] MEDS ORDERED: NOREPINEPHRINE 8 MG/250ML KIT 250 ML IV ONE (05:29)
[2020-03-11] MEDS: SODIUM ZIRCONIUM CYCL 10 GM PAK PO SCH ×3 (06:00→21:26)
[2020-03-11] MEDS: METOCLOPRAMIDE HCL 5MG/ml INJ 2ml VIAL IV SCH ×3 (06:00→21:26)
[2020-03-11] MEDS: ALBUTEROL SULF 2.5 MG/0.5ML(0.5%) NEB SOLN NEB SCH ×3 (06:40→22:41)
[2020-03-11] MEDS: VASOPRESSIN 50 UNITS in D5W 5% 247.5 ML IV SCH ×2 (06:43→18:14)
[2020-03-11 07:08] LABS: Band Neutrophils % (manual) 18; Eosinophils % (manual) 2 (0-7); Lymphocytes % (manual) 8 (10.0-50.0); Myelocytes % 2
[2020-03-11 07:09] LABS: Metamyelocytes % 2; Monocytes % (manual) 6 (0-12)
[2020-03-11] MEDS: CALCIUM ACETATE 667 MG CAP GT SCH ×3 (08:00→18:00)
[2020-03-11] MEDS ORDERED: SODIUM BICARBONATE 8.4 % INJ 50ML VIAL IV ONE (09:15)
[2020-03-11] MEDS: BUMETANIDE 2.5mg/10ml (0.25 mg/ml) INJ IV SCH ×2 (09:15→11:50)
[2020-03-11] MEDS: FAMOTIDINE (10MG/ML) 2ML VL IV SCH ×2 (09:40→21:26)
[2020-03-11] MEDS: CALCIUM CARB 500 MG CHEW TAB NG SCH ×2 (09:41→21:27)
[2020-03-11] MEDS: MULTIPLE VITAMIN TAB PO SCH (09:41)
[2020-03-11] MEDS: ENOXAPARIN SOD 40 MG/0.4 ML SYRINGE SC SCH (09:41)
[2020-03-11] MEDS: SODIUM CHLOR 0.9% PF (SALINE LOCK) 10ML VIAL/SYR IV SCH ×2 (09:41→21:26)
[2020-03-11] MEDS: DULOXETINE HCL PO SCH (09:41)
[2020-03-11] MEDS: BUDESONIDE (INHALATION) 0.5 MG/2 ML NEB NEB SCH ×2 (09:43→22:41)
[2020-03-11] MEDS ORDERED: BUMETANIDE 2.5mg/10ml (0.25 mg/ml) INJ IV SCH (10:00)
[2020-03-11] MEDS: SODIUM BICARBONATE 50ML VIAL 150 ML in D5W 5% 1,000 ML IV SCH ×2 (10:20→21:27)
[2020-03-11] MEDS ORDERED: SODIUM BICARBONATE 8.4% INJ 50ML SYRINGE IV ONE (11:15)
[2020-03-11] MEDS: PHENYLEPHRINE INJ 40 MG in SODIUM CHL 0.9% 250 ML IV SCH ×2 (12:29→23:09)
[2020-03-11] MEDS: ATRACURIUM BESYLATE 1,000 MG in D5W 5% 150 ML IV SCH (14:30)
[2020-03-11] MEDS: NOREPINEPHRINE BITARTRATE 16 MG in SODIUM CHL 0.9% 250 ML IV SCH (18:16)
[2020-03-12] MEDS ORDERED: VASOPRESSIN 20 UNIT/ML ONE (07:45)
== END 2020-03-12 01:07 | DRG 870 ==
LOC: ER 18:34 → TELE 18:35 → TELE-EAST 02-20 18:31 → ICU CENTRL 02-29 09:19 → DOU IN ICU 02-29 09:22
PROVIDERS: ADMIT Nurse Practitioner Family; ATTEND Internal Medicine
PROC: 5A09357 Assistance with Respiratory Ventilation, Less than 24 Consecutive Hours, Continuous Positive Airway Pressure (ICD-10-PCS; 2020-02-27)
PROC: 5A09357 Assistance with Respiratory Ventilation, Less than 24 Consecutive Hours, Continuous Positive Airway Pressure (ICD-10-PCS; 2020-02-28)
PROC: 0BH17EZ Insertion of Endotracheal Airway into Trachea, Via Natural or Artificial Opening (ICD-10-PCS; 2020-02-28)
PROC: 5A1955Z Respiratory Ventilation, Greater than 96 Consecutive Hours (ICD-10-PCS; principal; 2020-02-29)
PROC: 5A09357 Assistance with Respiratory Ventilation, Less than 24 Consecutive Hours, Continuous Positive Airway Pressure (ICD-10-PCS; 2020-02-29)
PROC: 5A1D70Z Performance of Urinary Filtration, Intermittent, Less than 6 Hours Per Day (ICD-10-PCS; 2020-03-03)
PROC: 5A1D70Z Performance of Urinary Filtration, Intermittent, Less than 6 Hours Per Day (ICD-10-PCS; 2020-03-05)
PROC: 5A1D70Z Performance of Urinary Filtration, Intermittent, Less than 6 Hours Per Day (ICD-10-PCS; 2020-03-08)
DX: A41.89 Other specified sepsis (principal); U07.1 COVID-19; J12.89 Other viral pneumonia; J96.01 Acute respiratory failure with hypoxia; J96.02 Acute respiratory failure with hypercapnia; N17.0 Acute kidney failure with tubular necrosis; R65.21 Severe sepsis with septic shock; E87.1 Hypo-osmolality and hyponatremia; E87.2 Acidosis; Z68.41 Body mass index [BMI] 40.0-44.9, adult; Z99.11 Dependence on respirator [ventilator] status; D64.9 Anemia, unspecified; E11.22 Type 2 diabetes mellitus with diabetic chronic kidney disease; E11.65 Type 2 diabetes mellitus with hyperglycemia; E66.01 Morbid (severe) obesity due to excess calories; E87.6 Hypokalemia; E87.5 Hyperkalemia; F32.9 Major depressive disorder, single episode, unspecified; E11.42 Type 2 diabetes mellitus with diabetic polyneuropathy; F41.9 Anxiety disorder, unspecified; I12.9 Hypertensive chronic kidney disease with stage 1 through stage 4 chronic kidney disease, or unspecified chronic kidney disease; I25.10 Atherosclerotic heart disease of native coronary artery without angina pectoris; E83.39 Other disorders of phosphorus metabolism; N18.9 Chronic kidney disease, unspecified; Z66 Do not resuscitate; Z79.899 Other long term (current) drug therapy; Z82.5 Family history of asthma and other chronic lower respiratory diseases; Z83.3 Family history of diabetes mellitus
CPT/HCPCS: 31500; 36415; 36569; 36600; 71045; 71275; 80048; 80053; 80074; 81001; 82040; 82728; 82805; 82962; 83615; 83735; 83880; 84100; 84478; 84484; 85007; 85025; 85027; 85379; 85610; 85730; 86141; 86850; 86900; 86901; 87040; 87070; 87205; 87426; 90935; 93005; 93970; 94002; 94003; 94640; 94660; 96361; 96365; 96366; 96372; 96375; A4565; G0378; J0330; J0610; J1100; J1642; J1756; J1815; J1956; J2250; J2704; J3490; J7060; J7131; P9047